=== PATIENT | male | born 1965 | race Two or more races ===

== ENCOUNTER → 2024-05-21 | Outpatient (BNVA) | payer MEDICAID, SELFPAY | END | disposition home or self-care (01) | PROVIDERS: PCP Nurse Practitioner Family; Referring Provider Nurse Practitioner Family; Visit Provider Nurse Practitioner Family | DX: I10 Essential (primary) hypertension (principal); E78.5 Hyperlipidemia, unspecified ==

== ENCOUNTER → 2024-05-28 | Outpatient (BNVA) | payer MEDICAID, SELFPAY | END | disposition home or self-care (01) | PROVIDERS: PCP Nurse Practitioner Family; Referring Provider Nurse Practitioner Family; Visit Provider Nurse Practitioner Family | DX: Z71.1 Person with feared health complaint in whom no diagnosis is made (principal); E78.5 Hyperlipidemia, unspecified | CPT/HCPCS: 99212; G0463 ==

== ENCOUNTER → 2024-06-21 | Outpatient (CLI) | payer MEDICAID, SELFPAY ==
--- NOTE | 2024-06-21 12:05 | XR_ITS ---
Examination: Right hand 2 views Technique one AP lateral right hand 2 views Exam date and time: June 21, 2024 1248 hours INDICATIONS: Trigger finger right third and fourth digits 5 years. FINDINGS: Moderate osteopenia No fracture or dislocation No cortical bone destruction No current flexion involving the third and fourth digits Mild osteoarthritis interphalangeal joints, most prominent proximal interphalangeal joint fifth digit IMPRESSION: No fracture No current flexion deformities
== END | disposition home or self-care (01) ==
LOC: CDIM 12:01
PROVIDERS: PCP Nurse Practitioner Family; Referring Provider Nurse Practitioner Family; Visit Provider Nurse Practitioner Family
DX: M65.30 Trigger finger, unspecified finger (principal)
CPT/HCPCS: 73120

== ENCOUNTER → 2024-07-22 | Outpatient (BNVA) | payer MEDICAID, SELFPAY | END | disposition home or self-care (01) | PROVIDERS: PCP Nurse Practitioner Family; Referring Provider Nurse Practitioner Family; Visit Provider Nurse Practitioner Family | DX: Z71.2 Person consulting for explanation of examination or test findings (principal); E66.9 Obesity, unspecified; E11.22 Type 2 diabetes mellitus with diabetic chronic kidney disease; N18.4 Chronic kidney disease, stage 4 (severe); E78.5 Hyperlipidemia, unspecified | CPT/HCPCS: 99212; G0463 ==

== ENCOUNTER → 2024-07-23 | Outpatient (BNVA) | payer MEDICAID, SELFPAY | END | disposition home or self-care (01) | PROVIDERS: PCP Nurse Practitioner Family; Referring Provider Nurse Practitioner Family; Visit Provider Nurse Practitioner Family | DX: M65.30 Trigger finger, unspecified finger (principal); I10 Essential (primary) hypertension; L84 Corns and callosities | CPT/HCPCS: 99215 ==

== ENCOUNTER → 2024-08-27 | Outpatient (CLI) | payer MEDICAID, SELFPAY ==
--- NOTE | 2024-08-27 14:35 | XR_ITS ---
Examination: Bilateral wrists 6 views TECHNIQUE: AP oblique lateral each wrist total 6 views Exam date and time: August 27, 2024 1502 hours INDICATIONS: Bilateral wrist pain several months. FINDINGS: Mild to moderate osteopenia Surgical clips adjacent to the distal left radius No fracture or dislocation involving either wrist No erosive or other significant arthritic change IMPRESSION: No erosive or other significant arthritic change
--- NOTE | 2024-08-27 14:35 | XR_ITS ---
Examination: Bilateral hands, 6 views. Technique: AP, Oblique, Lateral each hand total 6 views Date and time of exam: August 27, 2024 1455 hours INDICATIONS: Bilateral hand pain several months. FINDINGS: Moderate juxta-articular bone demineralization No fracture or dislocation involving either hand Surgical clips adjacent to the distal left radius No erosive or other significant arthritic change IMPRESSION: Moderate juxta-articular bone demineralization No erosive or other significant arthritic change
== END | disposition home or self-care (01) ==
PROVIDERS: PCP Nurse Practitioner Family
DX: M25.531 Pain in right wrist (principal); M25.532 Pain in left wrist; M25.842 Other specified joint disorders, left hand; M25.841 Other specified joint disorders, right hand
CPT/HCPCS: 73110; 73130

== ENCOUNTER → 2024-09-27 | Outpatient (BNVA) | payer MEDICAID, SELFPAY | END | disposition home or self-care (01) | PROVIDERS: PCP Nurse Practitioner Family; Referring Provider Nurse Practitioner Family; Visit Provider Nurse Practitioner Family | DX: I10 Essential (primary) hypertension (principal); E78.5 Hyperlipidemia, unspecified; E11.9 Type 2 diabetes mellitus without complications | CPT/HCPCS: 99213 ==

== ENCOUNTER → 2024-10-14 | Outpatient (BNVA) | payer MEDICAID, SELFPAY | END | disposition home or self-care (01) | PROVIDERS: PCP Nurse Practitioner Family; Referring Provider Nurse Practitioner Family; Visit Provider Nurse Practitioner Family | DX: I10 Essential (primary) hypertension (principal) | CPT/HCPCS: 99213 ==

== ENCOUNTER → 2024-11-05 | Outpatient (BNVA) | payer MEDICAID, SELFPAY | END | disposition home or self-care (01) | PROVIDERS: PCP Nurse Practitioner Family; Referring Provider Nurse Practitioner Family; Visit Provider Nurse Practitioner Family | DX: Z71.2 Person consulting for explanation of examination or test findings (principal); M25.561 Pain in right knee; E11.69 Type 2 diabetes mellitus with other specified complication; E66.9 Obesity, unspecified; I10 Essential (primary) hypertension; E78.5 Hyperlipidemia, unspecified; E11.22 Type 2 diabetes mellitus with diabetic chronic kidney disease; I12.9 Hypertensive chronic kidney disease with stage 1 through stage 4 chronic kidney disease, or unspecified chronic kidney disease; N18.4 Chronic kidney disease, stage 4 (severe); Z79.4 Long term (current) use of insulin; Z95.5 Presence of coronary angioplasty implant and graft | CPT/HCPCS: 99212; G0463 ==

== ENCOUNTER → 2024-12-17 | Outpatient (BNVA) | payer MEDICAID, SELFPAY | END | disposition home or self-care (01) | PROVIDERS: PCP Nurse Practitioner Family; Referring Provider Nurse Practitioner Family; Visit Provider Nurse Practitioner Family | DX: Z01.30 Encounter for examination of blood pressure without abnormal findings (principal); Z23 Encounter for immunization; I10 Essential (primary) hypertension | CPT/HCPCS: 90471; 90677; 99213; G0009 ==

== ENCOUNTER → 2025-04-29 | Outpatient (BNVA) | payer MEDICAID, SELFPAY | END | disposition home or self-care (01) | PROVIDERS: PCP Nurse Practitioner Family; Referring Provider Nurse Practitioner Family; Visit Provider Nurse Practitioner Family | DX: M51.369 Other intervertebral disc degeneration, lumbar region without mention of lumbar back pain or lower extremity pain (principal); M54.42 Lumbago with sciatica, left side; E11.65 Type 2 diabetes mellitus with hyperglycemia; Z23 Encounter for immunization | CPT/HCPCS: 90471; 90686; G0008 ==

== ENCOUNTER → 2025-05-27 | Outpatient (BNVA) | payer MEDICAID, SELFPAY | END | disposition home or self-care (01) | PROVIDERS: PCP Nurse Practitioner Family; Referring Provider Nurse Practitioner Family; Visit Provider Nurse Practitioner Family | DX: Z71.2 Person consulting for explanation of examination or test findings (principal); E78.5 Hyperlipidemia, unspecified; E11.22 Type 2 diabetes mellitus with diabetic chronic kidney disease; N18.4 Chronic kidney disease, stage 4 (severe); Z79.4 Long term (current) use of insulin | CPT/HCPCS: 99212; G0463 ==

== ENCOUNTER 2025-06-02 13:37 | Outpatient (RCR) | payer MEDICAID, SELFPAY ==
--- NOTE | 2025-06-02 14:38 | PT.OIERPT ---
PT OP Initial Eval Patient Information Outpatient Physical Therapy Treatment Date: 06/02/25 Visit Reasons: Carpal tunnel Medical Diagnosis: G56.02 Treatment Dx #1: L hand pain Start of Care: 06/02/25 Date of Onset: 04/01/25 DOS Smoking Status Smoking Status: Smoker, status unknown Initial Assessment Subjective: Pt is 59 yr old male s/p L CTR. Pt is using the hand for ADL's and gripping with some pain that comes and goes. The numbness is gone in the hand after sx. 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 Pt requires skilled therapy and has good rehab potential to meet goals. 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 Ind with HEP 2. Pt will tolerate yardwork x30 mins with <=2/10 L hand pain 3. Decreased TTP of thenar eminence from mod to min Treatment Plan 1. Manual therapy ? 2. Therex ? 3. Modalities as indicated, moist heat pack, ice, electrical stimulation Frequency and Duration: 2x a week for 12 visits plus the evaluation Certification Dates: 06/02/25 to 08/31/25 Procedure Charges OP PT Eval Mod Complex 30 minutes: Yes
== END 2025-06-25 23:59 | disposition home or self-care (01) ==
LOC: CPTX 13:37
PROVIDERS: PCP Nurse Practitioner Family; Referring Provider Nurse Practitioner Family; Visit Provider Nurse Practitioner Family
DX: M79.642 Pain in left hand (principal); Z98.890 Other specified postprocedural states; I10 Essential (primary) hypertension; E11.9 Type 2 diabetes mellitus without complications
CPT/HCPCS: 97162

== ENCOUNTER → 2025-06-10 | Outpatient (BNVA) | payer MEDICAID, SELFPAY | END | disposition home or self-care (01) | PROVIDERS: PCP Nurse Practitioner Family; Referring Provider Nurse Practitioner Family; Visit Provider Nurse Practitioner Family | DX: Z00.01 Encounter for general adult medical examination with abnormal findings (principal); E11.22 Type 2 diabetes mellitus with diabetic chronic kidney disease; I12.9 Hypertensive chronic kidney disease with stage 1 through stage 4 chronic kidney disease, or unspecified chronic kidney disease; N18.4 Chronic kidney disease, stage 4 (severe); E78.5 Hyperlipidemia, unspecified; Z79.84 Long term (current) use of oral hypoglycemic drugs; Z13.29 Encounter for screening for other suspected endocrine disorder; Z12.5 Encounter for screening for malignant neoplasm of prostate; Z13.89 Encounter for screening for other disorder; Z11.3 Encounter for screening for infections with a predominantly sexual mode of transmission | CPT/HCPCS: 93005; 99173; 99214; 99215 ==